=== PATIENT | male | born 1980 ===

== ENCOUNTER → 2022-01-29 | Outpatient (CLI) | payer OTHER ==
[~2022-01-29] VITALS: Ht 185.4 cm; Wt 113.4 kg
[~2022-01-29] MED LIST: SINCALIDE 2.27 MCG in IV NORMAL SALINE 50ML 30 ML IV ONE
--- NOTE | 2022-01-29 16:56 | RAD ---
INDICATION: Abdomen pain COMPARISON: January 17, 2022 TECHNIQUE: 5.5mCi of Tc99m Choletec was injected intravenously followed by scintigraphic images of the abdomen. 2.3 mcg of CCK was then injected and a gallbladder ejection fraction was calculated. FINDINGS: Appropriate radiotracer clearance from the blood pool. Appropriate radiotracer excretion into the biliary tree. Prompt passage of contrast into the small bowel. Visualization of the gallbladder prior to the 60 minute time point. Gallbladder ejection fraction is 73 percent. IMPRESSION: * No scintigraphic evidence of acute cholecystitis or high grade biliary obstruction. * No evidence of biliary dyskinesia. Electronically signed by: Jl Lucio MD (01/29/2022 4:53 PM) [id number]
== END ==
LOC: NM 09:02
PROVIDERS: ATTEND Family Medicine
DX: R10.11 Right upper quadrant pain (principal)
CPT/HCPCS: 78227; A9537; J2805